=== PATIENT | female | born 1980 | race Caucasian/White ===

== ENCOUNTER → 2017-01-22 | Outpatient (CLI) | payer OTHER ==
[~2017-01-22] MED LIST: ALBUAER2; AMT25 PO; BTLAI INJ; ELET40TA PO; FLNIN/; FLUT0.15 NAE; GABA-113 PO; IMT50 PO; MULT-506 PO; PROC1TAB5 PO; PRVHFAIN INH; TOPI50TA16 PO; VLTG EXT; VNTHFA/IN INH
[2017-01-22 12:13] LABS: BASO % 0.7 %; BASO ABS # 0.05 K/uL (0-0.2); COMPLETE YES; EOS % 1.3 %; HEMATOCRIT 36.1 % (37-47); IG% 0.1 %; LYMPH % 32.9 %; LYMPH ABS # 2.24 K/uL (1.2-3.4); MEAN CELL VOLUME 88.5 fL (80-100); MEAN CORPUSCULAR HEMOGLOBIN 29.2 pg (25-34); MEAN PLATELET VOLUME 9.8 fL (7.4-10.4); MONO % 9.4 %; NEUT % 55.6 %; PLATELET COUNT 312 K/uL (130-400); RED BLOOD COUNT 4.08 M/uL (4.2-5.4)
== END | disposition home or self-care (01) ==
LOC: C.LAB1850 11:08
PROVIDERS: ATTEND Internal Medicine
DX: Z86.2 Personal history of diseases of the blood and blood-forming organs and certain disorders involving the immune mechanism (principal)

== ENCOUNTER 2017-04-14 23:05 | Emergency (ER) | payer OTHER ==
[~2017-04-14] VITALS: Ht 160 cm; Wt 62.9 kg
[~2017-04-14 23:05] MED LIST changes: -BTLAI INJ; -ELET40TA PO; -FLUT0.15 NAE; -GABA-113 PO; -MULT-506 PO; -PROC1TAB5 PO; -TOPI50TA16 PO; -VNTHFA/IN INH
[2017-04-14 23:16] VITALS: BP 127/79; PULSE 90; TEMP 36.7; O2SAT 100; Ht 160 cm; Wt 62.9 kg
[2017-04-14] MEDS ORDERED: RANITIDINE HCL 150 MG TAB PO STA (23:32)
[2017-04-14] MEDS ORDERED: GABA-113 PO (23:37)
[2017-04-14] MEDS ORDERED: VNTHFA/IN INH (23:38)
[2017-04-14] MEDS ORDERED: TOPI50TA16 PO ×2 (23:39→23:42)
[2017-04-14] MEDS ORDERED: FLUT0.15 NAE (23:43)
[2017-04-14] MEDS ORDERED: ELET40TA PO (23:45)
[2017-04-14] MEDS ORDERED: EPINEPHRINE ADULT AUTO-INJECT 0.3 MG SYR IM ONE (23:45)
[2017-04-14] MEDS ORDERED: PROC1TAB5 PO (23:46)
[2017-04-14] MEDS ORDERED: MULT-506 PO (23:48)
[2017-04-14] MEDS ORDERED: BTLAI INJ (23:49)
--- NOTE | 2017-04-15 04:00 | EMERGENCY ROOM VISIT NOTE ---
History First contact with patient: 23:18 Chief Complaint: BITE Stated Complaint: HIVES,SORE/SWOLLEN THROAT,DIZZY,BEE STING??? History of Present Illness The patient is a 37 year old female who presents to the Emergency Room with complaints of bee sting to right foot 2 days ago that is erythematous and edematous. Patient states she does not have a known history of allergies to bees. She states that the area is somewhat itchy. Patient states she has asthma and is not sure if she feels slightly short of breath from that as she normally does or is this from the bee sting. Patient denies chest pain, increasing dyspnea, fevers, facial swelling, tongue swelling, dysphagia, abdominal pain, vomiting, diarrhea or any other medical complaints. Review of Systems See HPI for pertinent positives & negatives. A total of 10 systems reviewed and were otherwise negative. Past Medical/Surgical History Medical Problems: (1) Asthma (2) Bronchitis (3) Intractable headache (4) Newly recognized heart murmur (5) Pneumobilia Family History Diabetes mellitus FH: heart disease Hypertension Social History Smoking Status: Never Smoker Alcohol Use: none Drug Use: none Marital Status: Housing Status: lives with family Occupation Status: employed Current/Historical Medications Scheduled Botulinum Toxin Type A (Botox), 100 UNITS INJ [id number] Eletriptan (Relpax), 40 MG PO DIRECTED Gabapentin (Neurontin), 600 MG PO TID Multivitamin (Multivitamin), 1 TAB PO DAILY Topiramate (Topamax), 50 MG PO QAM Topiramate (Topamax), 75 MG PO QPM Scheduled PRN Albuterol Hfa (Ventolin Hfa), 2 PUFFS INH Q4H PRN for SOB/Wheezing Fluticasone Propionate (Nasal) (Flonase Allergy Relief), 2 SPRAYS MARYCHUY BID PRN for ALLERGIC REACTION Prochlorperazine Maleate (Compazine), 10 MG PO Q6H PRN for Nausea or Vomiting Allergies Coded Allergies: No Known Drug Allergy (Unverified Allergy, Mild, RASH, 04/14/17) Physical Exam Vital Signs Date Time Temp Pulse Resp B/P (MAP) Pulse Ox O2 Delivery O2 Flow Rate FiO2 04/14/17 23:16 36.7 90 18 127/79 100 Room Air Pain Rating (0-10): 0 Physical Exam VITALS: Vitals are noted on the nurse's note and reviewed by myself. Vital signs stable. GENERAL: Pleasant female, in no acute distress, nondiaphoretic, well-developed well-nourished. SKIN: Right foot second and third toe erythematous with minimal erythema without top of the foot with bee sting presents with no lymphangitis or palpable abscess The rest of the skin was without rashes, erythema, edema, or bruising. There is no tenting of the skin. Capillary reflex less than 2 seconds. HEAD: Normocephalic atraumatic. EARS: External auditory canals clear, tympanic membranes pearly brennan without erythema or effusion bilaterally. EYES: Pupils equal round and reactive to light and accommodation. Conjunctivae without injection, sclerae without icterus. Extraocular movements intact. NOSE: Patent, turbinates without inflammation or discharge. MOUTH: Mucous membranes moist. Pharynx without erythema or exudate. Uvula midline. Airway patent. Tongue does not deviate. NECK: Supple without nuchal rigidity. No lymphadenopathy. No thyromegaly. Cervical spine is nontender. No JVD. HEART: Regular rate and rhythm without murmurs gallops or rubs. LUNGS: Clear to auscultation bilaterally without wheezes, rales or rhonchi. No dullness to percussion. No retractions or accessory muscle use. ABDOMEN: Positive bowel sounds x 4. Normal tympanic percussion. Soft, nontender, without masses or organomegaly. Haque sign negative. No guarding or rebound tenderness. MUSCULOSKELETAL: No muscle atrophy, erythema, or edema noted. NEURO: Patient was alert and oriented to person place and time. Normal sensation to light and sharp touch. No focal neurological deficits. Medical Decision & Procedures Medications Administered Medications (Trade) Dose Ordered Sig/Lila Route Start Time Stop Time Status Last Admin Dose Admin Ranitidine HCl (zANTac TAB) 150 mg ONE STAT PO 04/14/17 23:32 04/14/17 23:38 DC 04/14/17 23:52 150 MG Diphenhydramine HCl (Benadryl Cap) 50 mg NOW ONCE PO 04/14/17 23:45 04/14/17 23:46 DC 04/14/17 23:52 50 MG Epinephrine (Epipen) 0.3 mg ONE ONCE IM 04/14/17 23:45 04/14/17 23:46 DC 04/15/17 00:14 0.3 MG ED Course Prior records/ancillary studies reviewed. Triage Nursing notes reviewed. The patient's history was concerning for possible allergic reaction. Differential diagnosis: Etiologies such as allergic reaction, anaphylaxis, urticaria, Sanchez-Lawson syndrome, toxic epidermal necrolysis, erythema multiforme, cellulitis, as well as others were entertained. Physical examination: As above. ER treatment provided: Continuous cardiac monitoring Benadryl 50 mg PO Zantac 150 mg PO On reassessment the patient felt better. Diagnostic interpretation by me: Deferred It appears the patient had an allergic reaction that was mild to the bee sting. The above treatment did well to reverse the symptoms. After prolonged monitoring and frequent reassessments the patient did very well and symptoms resolved. The patient was counseled on the spectrum of this disease process and told to avoid potential triggers. I gave my usual and customary discussion regarding this issue. By the evaluation outlined above emergent etiologies such as recurring anaphylaxis, anaphylatic shock, airway compromise, Sanchez-Lawson syndrome, toxic epidermal necrolysis, erythema multiforme, infectious etiologies, as well as others were deemed relatively unlikely. The pt informed about the findings as listed above. All questions were answered and pleased with the treatment. Return instructions were outlined and the patient was discharged in stable condition. Outpatient prescription management: EpiPen Referral: The patient was referred back to primary care physician for follow-up in 2-3 days for a recheck of the current condition. Medical Decision As above Impression Primary Impression: Allergic reaction to bee sting Departure Information Dispostion Home / Self-Care Condition GOOD Referrals RV. Garcia MD (PCP) Forms HOME CARE DOCUMENTATION FORM, IMPORTANT VISIT INFORMATION Patient Instructions [facility] Additional Instructions DO NOT drive, drink alcohol, operate machinery, or perform dangerous activities today. You were given medications in the ER that can affect your ability to safely function or operate a vehicle. Epi-Pen: Use one injection as instructed for severe allergic reactions associated with shortness of breath, difficulty breathing, or throat or tongue swelling. If you use this injection call 911 or proceed immediately to the nearest Emergency Room. Diphenhydramine(Benadryl) 25mg: use 25 to 50 mg every six hours for swelling, itching, or hives. This medication is sedating and will cause drowsiness. Avoid alcohol, operating machinery or dangerous equipment, working on ladders or roofs, DRIVING, or situations where being under the influence may be dangerous. Zantac 75: Take two pills twice a day along with Benadryl as needed for swelling , itching, or hives. Most people know this for its affect on the stomach, but it also acts similar to, but less potent than Benadryl for allergic reactions. Both the Benadryl and the Zantac are available [id number]. Continue current medications. Return to the emergency department for worsening of your rash, swelling of your face, lips, tongue, or throat, difficulty breathing, vomiting, or as needed. Follow-up with your primary care physician in 2 to 3 days for a recheck of your current condition.
== END 2017-04-15 00:16 | disposition home or self-care (01) ==
LOC: C.EDB 23:06 → C.EDA 04-15 00:16
DX: T63.441A Toxic effect of venom of bees, accidental (unintentional), initial encounter (principal); J45.909 Unspecified asthma, uncomplicated; Z79.899 Other long term (current) drug therapy; Z83.3 Family history of diabetes mellitus; Z82.49 Family history of ischemic heart disease and other diseases of the circulatory system

== ENCOUNTER → 2017-04-23 | Outpatient (CLI) | payer OTHER ==
[~2017-04-23] MED LIST changes: -ALBUAER2; -AMT25 PO; +BTLAI INJ; +ELET40TA PO; -FLNIN/; +FLUT0.15 NAE; +GABA-113 PO; -IMT50 PO; +MULT-506 PO; +PROC1TAB5 PO; -PRVHFAIN INH; +TOPI50TA16 PO; -VLTG EXT; +VNTHFA/IN INH
== END | disposition home or self-care (01) ==
LOC: C.PAPS 08:53
PROVIDERS: ATTEND Obstetrics & Gynecology
DX: Z01.419 Encounter for gynecological examination (general) (routine) without abnormal findings (principal); R26.81 Unsteadiness on feet

== ENCOUNTER → 2017-04-30 | Outpatient (CLI) | payer OTHER | END | disposition home or self-care (01) | LOC: C.LAB1850 10:04 | PROVIDERS: ATTEND Obstetrics & Gynecology | DX: O92.79 Other disorders of lactation (principal) ==

== ENCOUNTER → 2018-01-18 | Outpatient (CLI) | payer OTHER | END | disposition home or self-care (01) | LOC: C.LAB1850 13:54 | PROVIDERS: ATTEND Psychiatry & Neurology Neurology | DX: G43.919 Migraine, unspecified, intractable, without status migrainosus (principal) ==